=== PATIENT | female | born 1950 | race Caucasian/White ===

== ENCOUNTER 2024-05-11 09:51 | Outpatient (CLI) | payer OTHER, SELFPAY | END 2024-05-11 09:52 | disposition home or self-care (01) | PROVIDERS: PCP Physician Assistant Medical; Visit Provider Physician Assistant Medical | DX: D72.819 Decreased white blood cell count, unspecified (principal); E78.5 Hyperlipidemia, unspecified; I10 Essential (primary) hypertension; M81.0 Age-related osteoporosis without current pathological fracture | CPT/HCPCS: 80053; 80061; 84443; 85045 ==

== ENCOUNTER 2024-08-11 08:08 | Outpatient (CLI) | payer MEDICARE, SELFPAY | END 2024-08-11 08:09 | disposition home or self-care (01) | LOC: NFLDREF 14:47 | PROVIDERS: PCP Physician Assistant Medical; Referring Provider Physician Assistant Medical; Visit Provider Physician Assistant Medical | DX: E78.5 Hyperlipidemia, unspecified (principal); D72.819 Decreased white blood cell count, unspecified | CPT/HCPCS: 80061 ==

== ENCOUNTER 2025-05-16 08:51 | Outpatient (CLI) | payer MEDICARE, SELFPAY | END 2025-05-16 08:52 | disposition home or self-care (01) | PROVIDERS: PCP Physician Assistant Medical; Visit Provider Physician Assistant Medical | DX: M81.0 Age-related osteoporosis without current pathological fracture (principal); Z00.00 Encounter for general adult medical examination without abnormal findings | CPT/HCPCS: 80053; 80061; 82306; 84443 ==

== ENCOUNTER 2025-05-28 10:53 | Outpatient (CLI) | payer MEDICARE, SELFPAY | END 2025-05-28 10:54 | disposition home or self-care (01) | LOC: NFLDREF 05-30 14:08 | PROVIDERS: PCP Physician Assistant Medical; Referring Provider Physician Assistant Medical; Visit Provider Physician Assistant Medical | DX: D72.819 Decreased white blood cell count, unspecified (principal) | CPT/HCPCS: 82525; 82607; 82746 ==

== ENCOUNTER 2025-06-04 11:44 | Outpatient (CLI) | payer MEDICARE, SELFPAY ==
--- NOTE | 2025-06-04 13:46 | P.ANES_ITS ---
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
--- NOTE | 2025-06-04 13:46 | W.ANESCHARGE ---
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
--- NOTE | 2025-06-04 14:12 | P.ANES_ITS ---
Anesthesia Charges Start Date/Time Anesthesia Start Date: 06/04/25 Anesthesia Start Time: 13:20 Stop Date/Time Anesthesia Stop Date: 06/04/25 Anesthesia Stop Time: 13:43 Summary Extremes of Age - Over 70 or under 1: MDA Coding CPT Codes CPT Codes: ANES LWR INTST SCR COLSC - 64313 ([id number]) P2 - PATIENT W/MILD SYST DISEASE, QK - DROP FORGER HELPER 2-4 CNCRNT ANES PROC, QX - PORCELAIN SLUSHER SVC W/ MD MED DIRECTION Additional Codes: Summary - Extremes of Age - Over 70 or under 1: MDA ([id number])
--- NOTE | 2025-06-04 14:12 | W.ANESCHARGE ---
Anesthesia Charges Start Date/Time Anesthesia Start Date: 06/04/25 Anesthesia Start Time: 13:20 Stop Date/Time Anesthesia Stop Date: 06/04/25 Anesthesia Stop Time: 13:43 Summary Extremes of Age - Over 70 or under 1: MDA Coding CPT Codes CPT Codes: ANES LWR INTST SCR COLSC - 83202 ([id number]) P2 - PATIENT W/MILD SYST DISEASE, QK - GRINDER SET UP OPERATOR GEAR TOOL 2-4 CNCRNT ANES PROC, QX - WEED SPRAYER SVC W/ MD MED DIRECTION Additional Codes: Summary - Extremes of Age - Over 70 or under 1: MDA ([id number])
== END 2025-06-04 11:45 | disposition home or self-care (01) ==
LOC: OP CLINIC 11:45
PROVIDERS: PCP Physician Assistant Medical; Visit Provider Surgery
DX: Z12.11 Encounter for screening for malignant neoplasm of colon (principal); Z86.0100 Personal history of colon polyps, unspecified; K57.30 Diverticulosis of large intestine without perforation or abscess without bleeding
CPT/HCPCS: 00812; 45378; 99100; J2704

== ENCOUNTER 2025-07-11 11:30 | Outpatient (CLI) | payer MEDICARE, SELFPAY | END 2025-07-11 11:31 | disposition home or self-care (01) | LOC: NFLDREF 07-12 14:31 | PROVIDERS: PCP Physician Assistant Medical; Referring Provider Physician Assistant Medical; Visit Provider Physician Assistant Medical | DX: E53.8 Deficiency of other specified B group vitamins (principal); D72.819 Decreased white blood cell count, unspecified | CPT/HCPCS: 82607; 82728; 83540; 83550 ==